=== PATIENT | male | born 1945 | race African-American/Black ===

== ENCOUNTER 2020-03-02 04:56 | Inpatient (IN) | payer OTHER ==
[2020-03-02] MEDS ORDERED: ceFAZolin SODIUM 1 GM VIAL IVPB ONE ×2 (13:25→13:37)
[2020-03-02] MEDS ORDERED: GENTAMICIN 80MG PREMIX BAG IVPB ONE (13:37)
[2020-03-02] MEDS ORDERED: ACETAMINOPHEN 325 MG TABLET (FP) PO PRN (15:15)
[2020-03-02] MEDS ORDERED: oxyCODONE HCL 5 MG TABLET PO PRN (15:15)
[2020-03-02] MEDS ORDERED: ONDANSETRON 4 MG/2 ML VIAL IVPUSH PRN (15:25)
[2020-03-02] MEDS ORDERED: SODIUM CHLORIDE 1,000 ML IV SCH ×2 (15:30→20:30)
[2020-03-02] MEDS: ISOSORBIDE DINITRATE 20 MG TABLET PO SCH ×2 (18:01→19:43)
[2020-03-02 20:47] LABS: BASO % 0.4 % (0-2.0); EOS % 1.9 % (0-4.5); HEMOGLOBIN 11.2 GM/dL (11.7-16.9); LYMPH % 28.4 % (8-40); MCH 29.6 pg (25.7-33.7); MEAN CELL VOLUME 89.7 fl (80-96); MEAN PLT VOLUME 8.4 fl (7.5-11.1); MONO % 15.3 % (3.8-10.2); PLATELET COUNT 144 K/MM3 (134-434); RBC 3.79 M/mm3 (4.00-5.60)
[2020-03-02 20:55] LABS: INR 1.15 (0.83-1.09); PROTHROMBIN TIME (PATIENT) 14.1 SEC (9.7-13.0)
[2020-03-02 20:57] LABS: ACTIVATED PTT 24.6 SECONDS (25.2-36.5)
[2020-03-02 21:09] LABS: BLOOD UREA NITROGEN 15.8 mg/dL (7-18); CALCIUM 8.4 mg/dL (8.5-10.1); MAGNESIUM 1.5 mg/dL (1.8-2.4)
[2020-03-02 21:12] LABS: CREATININE 1.3 mg/dL (0.55-1.3)
[2020-03-02 21:14] LABS: BILIRUBIN,TOTAL 0.5 mg/dL (0.2-1)
[2020-03-02] MEDS ORDERED: CARVEDILOL 12.5 MG TABLET (FP) PO SCH (22:00)
[2020-03-02] MEDS ORDERED: LISINOPRIL 10 MG TABLET PO SCH (22:00)
[2020-03-02] MEDS ORDERED: ATORVASTATIN CA 80 MG TABLET (FP) PO SCH (22:00)
[2020-03-03] MEDS ORDERED: cefTRIAXone SODIUM 1 GM VIAL ONE ×2 (01:42→09:50)
[2020-03-03] MEDS ORDERED: DEXTROSE 5%-WATER - 50 ML IVPB ONE ×2 (01:42→09:50)
[2020-03-03] MEDS: CEFTRIAXONE 1 GM in DEXTROSE 5%-WATER - 50 ML IVPB SCH (01:43)
[2020-03-03] MEDS ORDERED: MAGNESIUM OXIDE 400 MG TABLET (FP) PO ONE (02:52)
[2020-03-03] MEDS: INSULIN SLIDING SCALE (NOVOLOG) 1 VIAL SQ SCH ×4 (06:52→21:03)
[2020-03-03] MEDS ORDERED: metFORMIN HCL 500 MG TABLET (FP) PO SCH (07:00)
[2020-03-03] MEDS ORDERED: glipiZIDE 10 MG TABLET (FP) PO SCH (07:00)
[2020-03-03 07:11] LABS: BASO % 0.4 % (0-2.0); EOS % 0.5 % (0-4.5); HEMATOCRIT 29.2 % (35.4-49); HEMOGLOBIN 9.8 GM/dL (11.7-16.9); LYMPH % 13.4 % (8-40); MCH 29.7 pg (25.7-33.7); MCHC 33.4 g/dl (32.0-35.9); MEAN CELL VOLUME 88.7 fl (80-96); MEAN PLT VOLUME 8.9 fl (7.5-11.1); MONO % 12.5 % (3.8-10.2); NEUT % 73.2 % (42.8-82.8); PLATELET COUNT 126 K/MM3 (134-434); RBC 3.29 M/mm3 (4.00-5.60); RDW 15.1 % (11.9-15.9); WHITE BLOOD COUNT 9.1 K/mm3 (4.0-10.0)
[2020-03-03 07:20] LABS: ALBUMIN 2.8 g/dl (3.4-5.0); CALCIUM 8.2 mg/dL (8.5-10.1); MAGNESIUM 1.6 mg/dL (1.8-2.4)
[2020-03-03 07:23] LABS: CREATININE 1.3 mg/dL (0.55-1.3)
[2020-03-03 07:24] LABS: PHOSPHOROUS 4.5 mg/dL (2.5-4.9)
[2020-03-03 07:25] LABS: BILIRUBIN,TOTAL 0.4 mg/dL (0.2-1); TOT PROT 5.6 g/dl (6.4-8.2)
[2020-03-03] MEDS: TAMSULOSIN HCL 0.4 MG CAP PO SCH (09:52)
[2020-03-03] MEDS: FINASTERIDE 5 MG TABLET (FP) PO SCH (09:53)
[2020-03-03] MEDS: SENNOSIDES 8.6MG TABLET (FP) PO SCH ×2 (09:53→21:03)
[2020-03-03] MEDS: SODIUM CHLORIDE 1,000 ML IV SCH (10:00)
[2020-03-03] MEDS ORDERED: ACETAMINOPHEN 325 MG TABLET (FP) PO PRN (10:01)
[2020-03-03] MEDS ORDERED: oxyCODONE HCL 5 MG TABLET PO PRN (10:01)
[2020-03-03] MEDS ORDERED: PT OWN MED DRAWER 7, Y5N ONE ×2 (17:20→21:02)
[2020-03-03] MEDS: ATORVASTATIN CA 20 MG TABLET (FP) PO SCH (21:02)
[2020-03-03] MEDS: LATANOPROST 0.005% OPHTH SOLN 2.5ML BOTTLE OD SCH (21:03)
[2020-03-03] MEDS ORDERED: ATORVASTATIN CA 80 MG TABLET (FP) PO SCH (22:00)
[2020-03-04] MEDS ORDERED: PT OWN MED DRAWER 7, Y5N ONE ×2 (06:46→17:35)
[2020-03-04] MEDS: INSULIN SLIDING SCALE (NOVOLOG) 1 VIAL SQ SCH ×4 (06:49→21:29)
[2020-03-04] MEDS ORDERED: cefTRIAXone SODIUM 1 GM VIAL ONE (09:00)
[2020-03-04] MEDS ORDERED: DEXTROSE 5%-WATER - 50 ML IVPB ONE (09:01)
[2020-03-04] MEDS: ISOSORBIDE MONONITRATE 60 MG TAB.SR.24H (FP) PO SCH (09:07)
[2020-03-04] MEDS: FINASTERIDE 5 MG TABLET (FP) PO SCH (09:07)
[2020-03-04] MEDS: CEFTRIAXONE 1 GM in DEXTROSE 5%-WATER - 50 ML IVPB SCH (09:07)
[2020-03-04] MEDS: LISINOPRIL 20 MG TABLET PO SCH (09:07)
[2020-03-04] MEDS: TAMSULOSIN HCL 0.4 MG CAP PO SCH (09:07)
[2020-03-04] MEDS: SENNOSIDES 8.6MG TABLET (FP) PO SCH ×2 (09:07→21:30)
[2020-03-04] MEDS: SODIUM CHLORIDE 1,000 ML IV SCH (09:07)
[2020-03-04] MEDS ORDERED: ISOSORBIDE MONONITRATE 20 MG TABLET PO SCH (10:00)
[2020-03-04 10:58] LABS: BASO % 0.4 % (0-2.0); HEMATOCRIT 21.5 % (35.4-49); HEMOGLOBIN 7.2 GM/dL (11.7-16.9); LYMPH % 21.6 % (8-40); MCH 29.8 pg (25.7-33.7); MCHC 33.4 g/dl (32.0-35.9); MEAN CELL VOLUME 89.3 fl (80-96); MEAN PLT VOLUME 8.9 fl (7.5-11.1); MONO % 16.1 % (3.8-10.2); NEUT % 58.9 % (42.8-82.8); PLATELET COUNT 108 K/MM3 (134-434); RBC 2.41 M/mm3 (4.00-5.60); RDW 15.1 % (11.9-15.9); WHITE BLOOD COUNT 8.1 K/mm3 (4.0-10.0)
[2020-03-04] MEDS: CARVEDILOL 3.125 MG TABLET (FP) PO SCH ×2 (12:26→21:30)
[2020-03-04] MEDS: LATANOPROST 0.005% OPHTH SOLN 2.5ML BOTTLE OD SCH (21:30)
[2020-03-04] MEDS: ATORVASTATIN CA 20 MG TABLET (FP) PO SCH (21:30)
[2020-03-05] MEDS: INSULIN SLIDING SCALE (NOVOLOG) 1 VIAL SQ SCH ×4 (06:27→21:58)
[2020-03-05] MEDS ORDERED: PT OWN MED DRAWER 7, Y5N ONE (06:42)
[2020-03-05] MEDS ORDERED: DEXTROSE 5%-WATER - 50 ML IVPB ONE (09:44)
[2020-03-05] MEDS ORDERED: cefTRIAXone SODIUM 1 GM VIAL ONE (09:44)
[2020-03-05] MEDS: FINASTERIDE 5 MG TABLET (FP) PO SCH (10:05)
[2020-03-05] MEDS: SENNOSIDES 8.6MG TABLET (FP) PO SCH ×2 (10:05→21:55)
[2020-03-05] MEDS: LISINOPRIL 20 MG TABLET PO SCH (10:05)
[2020-03-05] MEDS: TAMSULOSIN HCL 0.4 MG CAP PO SCH (10:05)
[2020-03-05] MEDS: SODIUM CHLORIDE 1,000 ML IV SCH ×2 (10:06→11:00)
[2020-03-05] MEDS: CEFTRIAXONE 1 GM in DEXTROSE 5%-WATER - 50 ML IVPB SCH (10:07)
[2020-03-05] MEDS: ISOSORBIDE MONONITRATE 60 MG TAB.SR.24H (FP) PO SCH (10:08)
[2020-03-05] MEDS: CARVEDILOL 3.125 MG TABLET (FP) PO SCH ×2 (10:08→21:55)
[2020-03-05 10:30] LABS: CALCIUM 8.1 mg/dL (8.5-10.1)
[2020-03-05 10:31] LABS: BLOOD UREA NITROGEN 14.2 mg/dL (7-18); MAGNESIUM 1.7 mg/dL (1.8-2.4)
[2020-03-05 10:35] LABS: CREATININE 1.1 mg/dL (0.55-1.3)
[2020-03-05 10:36] LABS: BASO % 0.3 % (0-2.0); EOS % 3.2 % (0-4.5); HEMATOCRIT 27.4 % (35.4-49); HEMOGLOBIN 9.1 GM/dL (11.7-16.9); LYMPH % 17.7 % (8-40); MCHC 33.2 g/dl (32.0-35.9); MEAN CELL VOLUME 87.4 fl (80-96); MEAN PLT VOLUME 9.1 fl (7.5-11.1); MONO % 14.6 % (3.8-10.2); NEUT % 64.2 % (42.8-82.8); PLATELET COUNT 116 K/MM3 (134-434); RBC 3.14 M/mm3 (4.00-5.60); RDW 16.3 % (11.9-15.9); WHITE BLOOD COUNT 8.5 K/mm3 (4.0-10.0)
[2020-03-05] MEDS: ATORVASTATIN CA 20 MG TABLET (FP) PO SCH (21:55)
[2020-03-05] MEDS: LATANOPROST 0.005% OPHTH SOLN 2.5ML BOTTLE OD SCH (21:56)
[2020-03-06] MEDS: SODIUM CHLORIDE 1,000 ML IV SCH (05:59)
[2020-03-06] MEDS: INSULIN SLIDING SCALE (NOVOLOG) 1 VIAL SQ SCH ×3 (06:04→21:24)
[2020-03-06 06:44] LABS: HEMATOCRIT 24.5 % (35.4-49); HEMOGLOBIN 8.4 GM/dL (11.7-16.9); MCH 29.5 pg (25.7-33.7); MCHC 34.3 g/dl (32.0-35.9); MEAN CELL VOLUME 86.2 fl (80-96); MEAN PLT VOLUME 8.4 fl (7.5-11.1); PLATELET COUNT 123 K/MM3 (134-434); RBC 2.84 M/mm3 (4.00-5.60); RDW 15.9 % (11.9-15.9)
[2020-03-06 07:07] LABS: ALBUMIN 2.6 g/dl (3.4-5.0); BLOOD UREA NITROGEN 16.4 mg/dL (7-18); MAGNESIUM 1.8 mg/dL (1.8-2.4)
[2020-03-06 07:11] LABS: CREATININE 1.1 mg/dL (0.55-1.3); PHOSPHOROUS 3.6 mg/dL (2.5-4.9)
[2020-03-06 07:12] LABS: BILIRUBIN,TOTAL 1.2 mg/dL (0.2-1); TOT PROT 5.5 g/dl (6.4-8.2)
[2020-03-06] MEDS ORDERED: cefTRIAXone SODIUM 1 GM VIAL ONE (09:03)
[2020-03-06] MEDS ORDERED: DEXTROSE 5%-WATER - 50 ML IVPB ONE (09:03)
[2020-03-06] MEDS: SENNOSIDES 8.6MG TABLET (FP) PO SCH ×2 (09:07→21:25)
[2020-03-06] MEDS: ISOSORBIDE MONONITRATE 60 MG TAB.SR.24H (FP) PO SCH (09:07)
[2020-03-06] MEDS: CARVEDILOL 3.125 MG TABLET (FP) PO SCH ×2 (09:07→21:25)
[2020-03-06] MEDS: LISINOPRIL 20 MG TABLET PO SCH (09:07)
[2020-03-06] MEDS: TAMSULOSIN HCL 0.4 MG CAP PO SCH (09:07)
[2020-03-06] MEDS: FINASTERIDE 5 MG TABLET (FP) PO SCH (09:08)
[2020-03-06] MEDS: CEFTRIAXONE 1 GM in DEXTROSE 5%-WATER - 50 ML IVPB SCH (09:51)
[2020-03-06] MEDS ORDERED: MAGNESIUM HYDROX 2400MG/30ML ORAL SUSPENSION 30 ML CUP PO ONE (11:30)
[2020-03-06] MEDS: DOCUSATE SODIUM 100 MG CAPSULE (FP) PO SCH ×2 (13:58→21:25)
[2020-03-06] MEDS: ATORVASTATIN CA 20 MG TABLET (FP) PO SCH (21:24)
[2020-03-06] MEDS: LATANOPROST 0.005% OPHTH SOLN 2.5ML BOTTLE OD SCH (22:44)
[2020-03-07] MEDS: DOCUSATE SODIUM 100 MG CAPSULE (FP) PO SCH ×3 (06:09→21:02)
[2020-03-07] MEDS: INSULIN SLIDING SCALE (NOVOLOG) 1 VIAL SQ SCH ×4 (06:09→22:21)
[2020-03-07] MEDS ORDERED: DEXTROSE 5%-WATER - 50 ML IVPB ONE (08:55)
[2020-03-07] MEDS ORDERED: cefTRIAXone SODIUM 1 GM VIAL ONE (08:55)
[2020-03-07] MEDS: CEFTRIAXONE 1 GM in DEXTROSE 5%-WATER - 50 ML IVPB SCH (09:19)
[2020-03-07] MEDS: FINASTERIDE 5 MG TABLET (FP) PO SCH (09:20)
[2020-03-07] MEDS: LISINOPRIL 20 MG TABLET PO SCH (09:20)
[2020-03-07] MEDS: ISOSORBIDE MONONITRATE 60 MG TAB.SR.24H (FP) PO SCH (09:20)
[2020-03-07] MEDS: CARVEDILOL 3.125 MG TABLET (FP) PO SCH ×2 (09:20→21:02)
[2020-03-07] MEDS: TAMSULOSIN HCL 0.4 MG CAP PO SCH (09:20)
[2020-03-07] MEDS: SENNOSIDES 8.6MG TABLET (FP) PO SCH ×2 (09:21→21:03)
[2020-03-07] MEDS ORDERED: INSULIN (NOVOLOG) ASPART 100 UNITS/ML 10ML VIAL ONE (11:24)
[2020-03-07 15:56] LABS: HEMATOCRIT 25.6 % (35.4-49); HEMOGLOBIN 8.8 GM/dL (11.7-16.9); MCH 29.9 pg (25.7-33.7); MCHC 34.3 g/dl (32.0-35.9); MEAN CELL VOLUME 87.3 fl (80-96); MEAN PLT VOLUME 8.4 fl (7.5-11.1); PLATELET COUNT 126 K/MM3 (134-434); RBC 2.93 M/mm3 (4.00-5.60); RDW 15.6 % (11.9-15.9); WHITE BLOOD COUNT 5.4 K/mm3 (4.0-10.0)
[2020-03-07] MEDS ORDERED: PT OWN MED DRAWER 7, Y5N ONE (20:53)
[2020-03-07] MEDS: ACETAMINOPHEN 325 MG TABLET (FP) PO PRN (21:01)
[2020-03-07] MEDS: ATORVASTATIN CA 80 MG TABLET (FP) PO SCH (21:02)
[2020-03-07] MEDS: LATANOPROST 0.005% OPHTH SOLN 2.5ML BOTTLE OS SCH (21:03)
[2020-03-07] MEDS ORDERED: LATANOPROST 0.005% OPHTH SOLN 2.5ML BOTTLE OD SCH (22:00)
[2020-03-07] MEDS ORDERED: FERROUS SO4 300 MG/5 ML ORAL SOLN UNIT DOSE CUPS PO SCH (22:00)
[2020-03-08] MEDS: DOCUSATE SODIUM 100 MG CAPSULE (FP) PO SCH ×3 (06:04→22:11)
[2020-03-08] MEDS: ACETAMINOPHEN 325 MG TABLET (FP) PO PRN (06:04)
[2020-03-08] MEDS: INSULIN SLIDING SCALE (NOVOLOG) 1 VIAL SQ SCH ×4 (06:13→22:11)
[2020-03-08] MEDS ORDERED: PT OWN MED DRAWER 7, Y5N ONE ×2 (07:00→08:21)
[2020-03-08] MEDS ORDERED: FERROUS SO4 300 MG/5 ML ORAL SOLN UNIT DOSE CUPS PO SCH (08:00)
[2020-03-08] MEDS: TAMSULOSIN HCL 0.4 MG CAP PO SCH (08:30)
[2020-03-08 08:51] LABS: MCH 29.8 pg (25.7-33.7); MCHC 34.5 g/dl (32.0-35.9); MEAN CELL VOLUME 86.3 fl (80-96); MEAN PLT VOLUME 8.1 fl (7.5-11.1); PLATELET COUNT 141 K/MM3 (134-434); RBC 3.01 M/mm3 (4.00-5.60); RDW 15.7 % (11.9-15.9); WHITE BLOOD COUNT 5.7 K/mm3 (4.0-10.0)
[2020-03-08 09:14] LABS: BILIRUBIN,TOTAL 0.4 mg/dL (0.2-1)
[2020-03-08] MEDS ORDERED: cefTRIAXone SODIUM 1 GM VIAL ONE (09:17)
[2020-03-08] MEDS ORDERED: DEXTROSE 5%-WATER - 50 ML IVPB ONE (09:18)
[2020-03-08] MEDS: CARVEDILOL 3.125 MG TABLET (FP) PO SCH ×2 (09:20→22:11)
[2020-03-08] MEDS: FINASTERIDE 5 MG TABLET (FP) PO SCH (09:20)
[2020-03-08] MEDS: SENNOSIDES 8.6MG TABLET (FP) PO SCH ×2 (09:20→22:11)
[2020-03-08] MEDS: LISINOPRIL 20 MG TABLET PO SCH (09:20)
[2020-03-08] MEDS: ISOSORBIDE MONONITRATE 60 MG TAB.SR.24H (FP) PO SCH (09:20)
[2020-03-08] MEDS: CEFTRIAXONE 1 GM in DEXTROSE 5%-WATER - 50 ML IVPB SCH (09:21)
[2020-03-08 16:19] LABS: CALCIUM 8.3 mg/dL (8.5-10.1)
[2020-03-08 16:20] LABS: BLOOD UREA NITROGEN 16.1 mg/dL (7-18)
[2020-03-08 16:24] LABS: CREATININE 1.2 mg/dL (0.55-1.3)
[2020-03-08] MEDS: ATORVASTATIN CA 80 MG TABLET (FP) PO SCH (22:11)
[2020-03-08] MEDS: LATANOPROST 0.005% OPHTH SOLN 2.5ML BOTTLE OS SCH (22:11)
[2020-03-09] MEDS: DOCUSATE SODIUM 100 MG CAPSULE (FP) PO SCH ×3 (06:34→23:03)
[2020-03-09] MEDS: INSULIN SLIDING SCALE (NOVOLOG) 1 VIAL SQ SCH ×4 (06:35→23:12)
[2020-03-09] MEDS: TAMSULOSIN HCL 0.4 MG CAP PO SCH (08:41)
[2020-03-09 08:53] LABS: HEMATOCRIT 25.1 % (35.4-49); HEMOGLOBIN 8.5 GM/dL (11.7-16.9); MCH 29.5 pg (25.7-33.7); MEAN CELL VOLUME 86.6 fl (80-96); MEAN PLT VOLUME 8.4 fl (7.5-11.1); PLATELET COUNT 161 K/MM3 (134-434); RDW 16.2 % (11.9-15.9); WHITE BLOOD COUNT 5.3 K/mm3 (4.0-10.0)
[2020-03-09] MEDS ORDERED: DEXTROSE 5%-WATER - 50 ML IVPB ONE (11:09)
[2020-03-09] MEDS ORDERED: cefTRIAXone SODIUM 1 GM VIAL ONE (11:09)
[2020-03-09] MEDS: ISOSORBIDE MONONITRATE 60 MG TAB.SR.24H (FP) PO SCH (11:17)
[2020-03-09] MEDS: LISINOPRIL 20 MG TABLET PO SCH (11:17)
[2020-03-09] MEDS: CARVEDILOL 3.125 MG TABLET (FP) PO SCH ×2 (11:17→23:03)
[2020-03-09] MEDS: SENNOSIDES 8.6MG TABLET (FP) PO SCH ×2 (11:18→23:01)
[2020-03-09] MEDS: FINASTERIDE 5 MG TABLET (FP) PO SCH (11:31)
[2020-03-09] MEDS: CEFTRIAXONE 1 GM in DEXTROSE 5%-WATER - 50 ML IVPB SCH (11:31)
[2020-03-09 14:08] LABS: HEMATOCRIT 28.4 % (35.4-49); HEMOGLOBIN 9.6 GM/dL (11.7-16.9); MCH 29.5 pg (25.7-33.7); MCHC 33.7 g/dl (32.0-35.9); MEAN CELL VOLUME 87.5 fl (80-96); MEAN PLT VOLUME 8.1 fl (7.5-11.1); PLATELET COUNT 172 K/MM3 (134-434); RBC 3.25 M/mm3 (4.00-5.60); RDW 15.6 % (11.9-15.9)
[2020-03-09] MEDS ORDERED: SODIUM CHLORIDE 500 ML IV SCH (14:45)
[2020-03-09] MEDS: ATORVASTATIN CA 80 MG TABLET (FP) PO SCH (23:03)
[2020-03-09] MEDS: LATANOPROST 0.005% OPHTH SOLN 2.5ML BOTTLE OS SCH (23:04)
[2020-03-10] MEDS: DOCUSATE SODIUM 100 MG CAPSULE (FP) PO SCH ×3 (06:07→21:57)
[2020-03-10] MEDS: INSULIN SLIDING SCALE (NOVOLOG) 1 VIAL SQ SCH ×4 (06:10→22:02)
[2020-03-10] MEDS ORDERED: INSULIN (NOVOLOG) ASPART 100 UNITS/ML 10ML VIAL ONE (06:42)
[2020-03-10 08:36] LABS: HEMATOCRIT 25.2 % (35.4-49); HEMOGLOBIN 8.6 GM/dL (11.7-16.9); MCH 29.9 pg (25.7-33.7); MCHC 34.1 g/dl (32.0-35.9); MEAN CELL VOLUME 87.7 fl (80-96); MEAN PLT VOLUME 8.4 fl (7.5-11.1); PLATELET COUNT 164 K/MM3 (134-434); RBC 2.88 M/mm3 (4.00-5.60); RDW 15.4 % (11.9-15.9)
[2020-03-10 08:57] LABS: CALCIUM 8.3 mg/dL (8.5-10.1)
[2020-03-10 08:58] LABS: BLOOD UREA NITROGEN 15.6 mg/dL (7-18)
[2020-03-10 09:01] LABS: CREATININE 1.2 mg/dL (0.55-1.3)
[2020-03-10] MEDS: LISINOPRIL 10 MG TABLET PO SCH (09:56)
[2020-03-10] MEDS: TAMSULOSIN HCL 0.4 MG CAP PO SCH (09:56)
[2020-03-10] MEDS: FINASTERIDE 5 MG TABLET (FP) PO SCH (09:56)
[2020-03-10] MEDS: SENNOSIDES 8.6MG TABLET (FP) PO SCH ×3 (09:56→21:57)
[2020-03-10] MEDS: CARVEDILOL 3.125 MG TABLET (FP) PO SCH ×2 (09:56→22:04)
[2020-03-10] MEDS: ISOSORBIDE MONONITRATE 60 MG TAB.SR.24H (FP) PO SCH (09:56)
[2020-03-10] MEDS: LATANOPROST 0.005% OPHTH SOLN 2.5ML BOTTLE OS SCH (22:03)
[2020-03-10] MEDS: ATORVASTATIN CA 80 MG TABLET (FP) PO SCH (22:04)
[2020-03-11] MEDS: DOCUSATE SODIUM 100 MG CAPSULE (FP) PO SCH ×3 (06:07→22:16)
[2020-03-11] MEDS: INSULIN SLIDING SCALE (NOVOLOG) 1 VIAL SQ SCH ×4 (06:10→22:32)
[2020-03-11] MEDS: FINASTERIDE 5 MG TABLET (FP) PO SCH (09:25)
[2020-03-11] MEDS: ISOSORBIDE MONONITRATE 60 MG TAB.SR.24H (FP) PO SCH (09:25)
[2020-03-11] MEDS: TAMSULOSIN HCL 0.4 MG CAP PO SCH (09:25)
[2020-03-11] MEDS: CARVEDILOL 3.125 MG TABLET (FP) PO SCH ×2 (09:25→22:31)
[2020-03-11] MEDS: LISINOPRIL 10 MG TABLET PO SCH (09:25)
[2020-03-11] MEDS: SENNOSIDES 8.6MG TABLET (FP) PO SCH ×2 (09:25→22:17)
[2020-03-11] MEDS ORDERED: TAMSULOSIN HCL 0.4 MG CAP PO SCH (10:35)
[2020-03-11 10:36] LABS: HEMATOCRIT 25.1 % (35.4-49); HEMOGLOBIN 8.4 GM/dL (11.7-16.9); MCH 29.4 pg (25.7-33.7); MCHC 33.3 g/dl (32.0-35.9); MEAN CELL VOLUME 88.3 fl (80-96); MEAN PLT VOLUME 8.4 fl (7.5-11.1); PLATELET COUNT 164 K/MM3 (134-434); RBC 2.84 M/mm3 (4.00-5.60); WHITE BLOOD COUNT 5.5 K/mm3 (4.0-10.0)
[2020-03-11] MEDS ORDERED: TAMSULOSIN HCL 0.4 MG CAP PO ONE (10:36)
[2020-03-11 10:59] LABS: CALCIUM 8.2 mg/dL (8.5-10.1)
[2020-03-11 11:03] LABS: CREATININE 1.3 mg/dL (0.55-1.3)
[2020-03-11] MEDS ORDERED: INSULIN (NOVOLOG) ASPART 100 UNITS/ML 10ML VIAL ONE (12:06)
[2020-03-11] MEDS: FERROUS SO4 325 MG TABLET (FP) PO SCH ×2 (12:11→20:22)
[2020-03-11] MEDS: LATANOPROST 0.005% OPHTH SOLN 2.5ML BOTTLE OS SCH (22:31)
[2020-03-11] MEDS: ATORVASTATIN CA 80 MG TABLET (FP) PO SCH (22:31)
[2020-03-12] MEDS: INSULIN SLIDING SCALE (NOVOLOG) 1 VIAL SQ SCH ×4 (06:07→21:39)
[2020-03-12] MEDS: DOCUSATE SODIUM 100 MG CAPSULE (FP) PO SCH ×3 (06:07→21:37)
[2020-03-12] MEDS ORDERED: TAMSULOSIN HCL 0.4 MG CAP PO SCH (08:30)
[2020-03-12 08:33] LABS: HEMATOCRIT 25.1 % (35.4-49); HEMOGLOBIN 8.5 GM/dL (11.7-16.9); MCH 29.8 pg (25.7-33.7); MCHC 33.9 g/dl (32.0-35.9); MEAN CELL VOLUME 87.8 fl (80-96); MEAN PLT VOLUME 8.3 fl (7.5-11.1); PLATELET COUNT 172 K/MM3 (134-434); RBC 2.86 M/mm3 (4.00-5.60); RDW 15.8 % (11.9-15.9); WHITE BLOOD COUNT 5.7 K/mm3 (4.0-10.0)
[2020-03-12 08:49] LABS: CALCIUM 8.4 mg/dL (8.5-10.1)
[2020-03-12 08:50] LABS: BLOOD UREA NITROGEN 15.4 mg/dL (7-18)
[2020-03-12 08:53] LABS: CREATININE 1.1 mg/dL (0.55-1.3)
[2020-03-12] MEDS ORDERED: PROPOFOL 20 ML ONE ×2 (12:53)
[2020-03-12] MEDS ORDERED: GENTAMICIN SO4 80 MG/2 ML VIAL IVPB ONE (13:05)
[2020-03-12] MEDS ORDERED: GENTAMICIN SO4 80 MG/2 ML VIAL ONE (13:09)
[2020-03-12] MEDS ORDERED: DEXAMETHASONE SOD PHOSPHATE 4 MG/1 ML VIAL ONE (13:52)
[2020-03-12] MEDS ORDERED: ONDANSETRON 4 MG/2 ML VIAL IVPUSH PRN (14:10)
[2020-03-12] MEDS: ISOSORBIDE MONONITRATE 60 MG TAB.SR.24H (FP) PO SCH (16:19)
[2020-03-12] MEDS: FERROUS SO4 325 MG TABLET (FP) PO SCH (16:19)
[2020-03-12] MEDS: LISINOPRIL 10 MG TABLET PO SCH (16:19)
[2020-03-12] MEDS: FINASTERIDE 5 MG TABLET (FP) PO SCH (16:19)
[2020-03-12] MEDS: CARVEDILOL 3.125 MG TABLET (FP) PO SCH ×2 (16:19→21:37)
[2020-03-12] MEDS: SENNOSIDES 8.6MG TABLET (FP) PO SCH ×2 (16:20→21:38)
[2020-03-12] MEDS: ATORVASTATIN CA 80 MG TABLET (FP) PO SCH (21:37)
[2020-03-13] MEDS: DOCUSATE SODIUM 100 MG CAPSULE (FP) PO SCH ×3 (06:17→22:14)
[2020-03-13] MEDS: INSULIN SLIDING SCALE (NOVOLOG) 1 VIAL SQ SCH ×4 (06:17→22:15)
[2020-03-13] MEDS: TAMSULOSIN HCL 0.4 MG CAP PO SCH (08:45)
[2020-03-13] MEDS: FINASTERIDE 5 MG TABLET (FP) PO SCH (09:50)
[2020-03-13] MEDS: ISOSORBIDE MONONITRATE 60 MG TAB.SR.24H (FP) PO SCH (09:50)
[2020-03-13] MEDS: LISINOPRIL 10 MG TABLET PO SCH (09:50)
[2020-03-13] MEDS: CARVEDILOL 3.125 MG TABLET (FP) PO SCH ×2 (09:50→22:14)
[2020-03-13] MEDS: SENNOSIDES 8.6MG TABLET (FP) PO SCH ×2 (09:51→22:15)
[2020-03-13 09:56] LABS: HEMATOCRIT 24.7 % (35.4-49); HEMOGLOBIN 8.6 GM/dL (11.7-16.9); MCH 30.5 pg (25.7-33.7); MCHC 34.9 g/dl (32.0-35.9); MEAN CELL VOLUME 87.4 fl (80-96); MEAN PLT VOLUME 8.3 fl (7.5-11.1); PLATELET COUNT 218 K/MM3 (134-434); RBC 2.83 M/mm3 (4.00-5.60); RDW 15.7 % (11.9-15.9); WHITE BLOOD COUNT 8.5 K/mm3 (4.0-10.0)
[2020-03-13 10:30] LABS: CREATININE 1.2 mg/dL (0.55-1.3)
[2020-03-13 17:49] VITALS: BMI 25.8
[2020-03-13] MEDS: ATORVASTATIN CA 80 MG TABLET (FP) PO SCH (22:14)
[2020-03-14] MEDS: DOCUSATE SODIUM 100 MG CAPSULE (FP) PO SCH ×3 (06:15→21:33)
[2020-03-14] MEDS: INSULIN SLIDING SCALE (NOVOLOG) 1 VIAL SQ SCH ×4 (06:30→21:33)
[2020-03-14 09:04] LABS: HEMATOCRIT 26.9 % (35.4-49); MCH 29.6 pg (25.7-33.7); MCHC 33.4 g/dl (32.0-35.9); MEAN CELL VOLUME 88.6 fl (80-96); MEAN PLT VOLUME 8.5 fl (7.5-11.1); PLATELET COUNT 228 K/MM3 (134-434); RBC 3.03 M/mm3 (4.00-5.60); RDW 15.8 % (11.9-15.9); WHITE BLOOD COUNT 8.3 K/mm3 (4.0-10.0)
[2020-03-14 09:38] LABS: CALCIUM 8.4 mg/dL (8.5-10.1)
[2020-03-14] MEDS: TAMSULOSIN HCL 0.4 MG CAP PO SCH (09:38)
[2020-03-14 09:39] LABS: BLOOD UREA NITROGEN 16.9 mg/dL (7-18)
[2020-03-14] MEDS: FINASTERIDE 5 MG TABLET (FP) PO SCH (09:39)
[2020-03-14] MEDS: ISOSORBIDE MONONITRATE 60 MG TAB.SR.24H (FP) PO SCH (09:39)
[2020-03-14] MEDS: LISINOPRIL 10 MG TABLET PO SCH (09:39)
[2020-03-14] MEDS: CARVEDILOL 3.125 MG TABLET (FP) PO SCH ×2 (09:39→21:33)
[2020-03-14] MEDS: SENNOSIDES 8.6MG TABLET (FP) PO SCH ×2 (09:40→21:33)
[2020-03-14 09:42] LABS: CREATININE 1.3 mg/dL (0.55-1.3)
[2020-03-14] MEDS: ATORVASTATIN CA 80 MG TABLET (FP) PO SCH (21:33)
[2020-03-15] MEDS: INSULIN SLIDING SCALE (NOVOLOG) 1 VIAL SQ SCH ×4 (06:47→22:39)
[2020-03-15] MEDS: DOCUSATE SODIUM 100 MG CAPSULE (FP) PO SCH ×3 (06:47→22:38)
[2020-03-15 09:07] LABS: BASO % 0.4 % (0-2.0); EOS % 1.9 % (0-4.5); HEMATOCRIT 25.4 % (35.4-49); HEMOGLOBIN 8.6 GM/dL (11.7-16.9); LYMPH % 22.3 % (8-40); MCH 30.1 pg (25.7-33.7); MEAN CELL VOLUME 88.3 fl (80-96); MEAN PLT VOLUME 8.3 fl (7.5-11.1); MONO % 13.2 % (3.8-10.2); NEUT % 62.2 % (42.8-82.8); PLATELET COUNT 237 K/MM3 (134-434); RBC 2.87 M/mm3 (4.00-5.60); RDW 15.7 % (11.9-15.9); WHITE BLOOD COUNT 7.9 K/mm3 (4.0-10.0)
[2020-03-15 09:22] LABS: ALBUMIN 2.8 g/dl (3.4-5.0); CALCIUM 8.5 mg/dL (8.5-10.1)
[2020-03-15 09:23] LABS: BILIRUBIN,TOTAL 0.4 mg/dL (0.2-1); TOT PROT 6.2 g/dl (6.4-8.2)
[2020-03-15 09:25] LABS: CREATININE 1.2 mg/dL (0.55-1.3)
[2020-03-15] MEDS: TAMSULOSIN HCL 0.4 MG CAP PO SCH (10:05)
[2020-03-15] MEDS: ISOSORBIDE MONONITRATE 60 MG TAB.SR.24H (FP) PO SCH (10:05)
[2020-03-15] MEDS: CARVEDILOL 3.125 MG TABLET (FP) PO SCH ×2 (10:05→22:38)
[2020-03-15] MEDS: LISINOPRIL 10 MG TABLET PO SCH (10:05)
[2020-03-15] MEDS: SENNOSIDES 8.6MG TABLET (FP) PO SCH ×2 (10:06→22:38)
[2020-03-15] MEDS: FINASTERIDE 5 MG TABLET (FP) PO SCH (10:06)
[2020-03-15] MEDS ORDERED: SODIUM CHLORIDE 500 ML IV STA (12:49)
[2020-03-15] MEDS ORDERED: SODIUM CHLORIDE 250 ML IV STA (12:50)
[2020-03-15] MEDS ORDERED: SODIUM CHLORIDE 1,000 ML IV SCH (13:00)
[2020-03-15] MEDS: ATORVASTATIN CA 80 MG TABLET (FP) PO SCH (22:38)
[2020-03-16] MEDS: INSULIN SLIDING SCALE (NOVOLOG) 1 VIAL SQ SCH (06:29)
[2020-03-16] MEDS: DOCUSATE SODIUM 100 MG CAPSULE (FP) PO SCH (06:34)
[2020-03-16 08:45] LABS: HEMATOCRIT 25.4 % (35.4-49); HEMOGLOBIN 8.7 GM/dL (11.7-16.9); MCHC 34.1 g/dl (32.0-35.9); MEAN CELL VOLUME 88.1 fl (80-96); MEAN PLT VOLUME 7.9 fl (7.5-11.1); PLATELET COUNT 264 K/MM3 (134-434); RBC 2.88 M/mm3 (4.00-5.60); RDW 15.6 % (11.9-15.9); WHITE BLOOD COUNT 7.4 K/mm3 (4.0-10.0)
[2020-03-16] MEDS: TAMSULOSIN HCL 0.4 MG CAP PO SCH (09:11)
[2020-03-16] MEDS: LISINOPRIL 10 MG TABLET PO SCH (09:22)
[2020-03-16] MEDS: CARVEDILOL 3.125 MG TABLET (FP) PO SCH (09:22)
[2020-03-16] MEDS: ISOSORBIDE MONONITRATE 60 MG TAB.SR.24H (FP) PO SCH (09:22)
[2020-03-16] MEDS: FINASTERIDE 5 MG TABLET (FP) PO SCH (09:23)
[2020-03-16 14:35] VITALS: BP 116/60; PULSE 64; TEMP 98
== END 2020-03-16 17:29 | DRG 908 ==
LOC: JASU-SURG 04:56 → SUATTDRO 04:56 → JASUSAT 04:56 → J6S 17:41 → J4S 23:52 → JASUSAT 03-03 17:00 → J4S 03-03 17:04 → J6S 03-06 14:38
PROVIDERS: ADMIT Internal Medicine; ATTEND Internal Medicine
PROC: 0VB08ZZ Excision of Prostate, Via Natural or Artificial Opening Endoscopic (ICD-10-PCS; principal; 2020-03-02)
PROC: 0TBC8ZZ Excision of Bladder Neck, Via Natural or Artificial Opening Endoscopic (ICD-10-PCS; 2020-03-02)
PROC: 30233N1 Transfusion of Nonautologous Red Blood Cells into Peripheral Vein, Percutaneous Approach (ICD-10-PCS; 2020-03-04)
PROC: 0W3R8ZZ Control Bleeding in Genitourinary Tract, Via Natural or Artificial Opening Endoscopic (ICD-10-PCS; 2020-03-12)
PROC: 0TCB8ZZ Extirpation of Matter from Bladder, Via Natural or Artificial Opening Endoscopic (ICD-10-PCS; 2020-03-12)
DX: N99.820 Postprocedural hemorrhage of a genitourinary system organ or structure following a genitourinary system procedure (principal); I50.22 Chronic systolic (congestive) heart failure; D62 Acute posthemorrhagic anemia; N13.8 Other obstructive and reflux uropathy; I95.81 Postprocedural hypotension; N40.1 Benign prostatic hyperplasia with lower urinary tract symptoms; T88.59XA Other complications of anesthesia, initial encounter; R11.2 Nausea with vomiting, unspecified; E78.5 Hyperlipidemia, unspecified; I25.10 Atherosclerotic heart disease of native coronary artery without angina pectoris; I25.5 Ischemic cardiomyopathy; R61 Generalized hyperhidrosis; R31.0 Gross hematuria; I95.1 Orthostatic hypotension; D69.6 Thrombocytopenia, unspecified; R33.8 Other retention of urine; R55 Syncope and collapse; I11.0 Hypertensive heart disease with heart failure
CPT/HCPCS: 36415; 36430; 80048; 80053; 80061; 82247; 82962; 83605; 83721; 83735; 84100; 84484; 85025; 85027; 85610; 85730; 86850; 86900; 86901; 86922; 88305-TC; 93005; 93010; 94760; 97116-GP; 97161-GP; C9803; P9058; U0003